=== PATIENT | female | born 1950 | race African-American/Black ===

== ENCOUNTER 2016-08-26 16:33 | Emergency (ER) | payer MEDICAID, MEDICARE | END 2016-08-26 17:18 | disposition home or self-care (01) | LOC: NAV ERS 16:33 | DX: R10.33 Periumbilical pain (principal); I10 Essential (primary) hypertension; F17.210 Nicotine dependence, cigarettes, uncomplicated; Z79.899 Other long term (current) drug therapy | CPT/HCPCS: 99283 ==

== ENCOUNTER 2017-04-03 13:36 | Emergency (ER) | payer MEDICARE ==
[2017-04-03] MEDS ORDERED: Ketorolac Tromethamine 60 MG/2 ML VIAL ONE (14:00)
== END 2017-04-03 14:19 | disposition home or self-care (01) ==
LOC: NAV ERS 13:36
DX: M62.838 Other muscle spasm (principal); I10 Essential (primary) hypertension; F17.210 Nicotine dependence, cigarettes, uncomplicated
CPT/HCPCS: 96372; J1885

== ENCOUNTER 2018-01-20 16:07 | Emergency (ER) | payer MEDICARE, OTHER | END 2018-01-20 16:40 | disposition home or self-care (01) | LOC: NAV ERS 16:07 | DX: H92.02 Otalgia, left ear (principal); F17.210 Nicotine dependence, cigarettes, uncomplicated; I10 Essential (primary) hypertension; Z79.82 Long term (current) use of aspirin; Z79.899 Other long term (current) drug therapy | CPT/HCPCS: 99282 ==